=== PATIENT | male | born 1990 | race Hispanic/Latino ===

== ENCOUNTER 2019-09-11 05:43 | Emergency (ER) | payer OTHER ==
[2019-09-11] MEDS ORDERED: FENTANYL CITR 100 MCG/2 ML ONE (06:32)
[2019-09-11] MEDS ORDERED: IBUPROFEN 400 MG TAB ONE (06:32)
--- NOTE | 2019-09-11 07:37 | EDPHYS ---
Physician Documentation [facility] Name: Mike Valentin Age: 28 yrs Sex: Male : 1990 Arrival Date: 09/11/2019 Time: 05:43 Bed 13 Private MD: ED Physician Raleigh Abarca HPI: 09/10 06:52 This 28 yrs old Male presents to ER via Wheelchair with complaints of Ankle snw Injury. 06:52 The patient presents with decreased range of motion, an injury, pain, swelling, snw tenderness. The complaints affect the left ankle. Onset: The symptoms/episode began/occurred suddenly, today. Context: The problem was sustained outdoors, resulted from the patient falling, pt now states he was walking up a hill and stepped off a curb, fell, and couldn't get up, The mechanism of injury involved eversion of the affected ankle. The patient is unable to bear weight. The patient is not able to ambulate. Modifying factors: The symptoms are alleviated by nothing, the symptoms are aggravated by movement. Severity of symptoms: At their worst the symptoms were moderate. The patient has not experienced similar symptoms in the past. It is unknown whether or not the patient has recently seen a physician. pt unable to tell me exact details of what happened, + ETOH, denies other injury but cannot rule in isolated injury. CT head and C-spine pending, C-collar until able to clear. Historical: - Allergies: 06:01 No Known Allergies; bb - Home Meds: 06:01 None [Active]; bb - PMHx: 06:01 None; bb - PSHx: 06:01 wrist surgery; bb - Immunization history:: Adult Immunizations not up to date. - Social history:: Smoking status: Patient denies any tobacco usage or history of. Patient uses alcohol, patient/guardian reports recent binge of alcohol consumption. ROS: 06:48 Constitutional: Negative for fever, chills, and weight loss, Eyes: Negative for injury, snw pain, redness, and discharge, ENT: Negative for injury, pain, and discharge, Neck: Negative for injury, pain, and swelling, Cardiovascular: Negative for chest pain, palpitations, and edema, Respiratory: Negative for shortness of breath, cough, wheezing, and pleuritic chest pain, Abdomen/GI: Negative for abdominal pain, nausea, vomiting, diarrhea, and constipation, Back: Negative for injury and pain, : Negative for injury, bleeding, discharge, and swelling, Skin: Negative for injury, rash, and discoloration, Neuro: Negative for headache, weakness, numbness, tingling, and seizure. 06:48 MS/extremity: Positive for injury or acute deformity, decreased range of motion, pain, of the left lateral malleolus and left medial ankle. Exam: 06:42 Head/Face: Normocephalic, atraumatic. Eyes: Pupils equal round and reactive to light, snw extra-ocular motions intact. Lids and lashes normal. Conjunctiva and sclera are non-icteric and not injected. Cornea within normal limits. Periorbital areas with no swelling, redness, or edema. ENT: Nares patent. No nasal discharge, no septal abnormalities noted. Tympanic membranes are normal and external auditory canals are clear. Oropharynx with no redness, swelling, or masses, exudates, or evidence of obstruction, uvula midline. Mucous membranes moist. Neck: Trachea midline, no thyromegaly or masses palpated, and no cervical lymphadenopathy. Supple, full range of motion without nuchal rigidity, or vertebral point tenderness. No Meningismus. Chest/axilla: Normal chest wall appearance and motion. Nontender with no deformity. No lesions are appreciated. Cardiovascular: Regular rate and rhythm with a normal S1 and S2. No gallops, murmurs, or rubs. Normal PMI, no JVD. No pulse deficits. 06:42 Abdomen/GI: Soft, non-tender, with normal bowel sounds. No distension or tympany. No guarding or rebound. No evidence of tenderness throughout. Back: No spinal tenderness. No costovertebral tenderness. Full range of motion. Neuro: Awake but sleepy, GCS 15, oriented to person, place, time, and situation. Cranial nerves II-XII grossly intact. Motor strength 5/5 in all extremities. Sensory grossly intact. Cerebellar exam normal. 06:42 Constitutional: The patient appears smells of alcohol, ETOH, pt not answering questions, states his ankle hurts but doesn't repeat what happened to it other than it got twisted. 06:42 Respiratory: the patient does not display signs of respiratory distress, Respirations: normal, Breath sounds: are clear throughout, + sleep apnea. 06:42 Musculoskeletal/extremity: Extremities: grossly normal except: noted in the left lateral malleolus and left medial malleolus: contusion, decreased ROM, pain, swelling, ROM: limited active range of motion due to pain, limited passive range of motion due to pain, Circulation is intact in all extremities. pain Compartment Syndrome exam of affected extremity: is normal. no numbness, no sensation deficit, no palor, no weak pulses, Weight bearing: is unable to bear weight. 06:42 Skin: Appearance: normal except for affected area, injury, abrasion(s), small abrasion noted, of the left medial ankle, contusion(s), that are deep, of the left medial malleolus. 06:42 Neuro: Orientation: won't answer questions, + ETOH, snoring. Awakens easily and c/o pain to left ankle, Motor: moves all fours, seizure activity, is not displayed by the patient. Vital Signs: 05:59 BP 133 / 84; Pulse 96; Resp 16 S; Temp 99(O); Pulse Ox 95% on R/A; Weight 95.25 kg (R); bb Height 5 ft. 5 in. (165.10 cm) (R); Pain 10/10; 05:59 Body Mass Index 34.95 (95.25 kg, 165.10 cm) bb MDM: 06:31 Patient medically screened. snw 07:39 Data reviewed: vital signs, nurses notes. Data interpreted: Pulse oximetry: on room air snw is 95 %. Interpretation: acceptable. Counseling: I had a detailed discussion with the patient and/or guardian regarding: the historical points, exam findings, and any diagnostic results supporting the discharge/admit diagnosis, the presence of at least one elevated blood pressure reading (>120/80) during this emergency department visit, radiology results, the need for outpatient follow up, to return to the emergency department if symptoms worsen or persist or if there are any questions or concerns that arise at home. Response to treatment: the patient's symptoms have markedly improved after treatment. Special discussion: I have referred the patient to see his PCP for further evaluation of high blood pressure. Based on the history and exam findings, there is no indication for further emergent testing or inpatient evaluation. I discussed with the patient/guardian the need to see the orthopedic surgeon for further evaluation of the symptoms. I discussed with the patient/guardian the need to see the primary care provider for further evaluation of the symptoms. ED course: pt now alert and Ox3 post splinting and stimulation. Declines CT head and C-spine. Pt states he was walking up a hill at his home and slipped, twisted ankle and fell. Pt states he was unable to stand up or walk on ankle post fall.. 09/10 06:03 Order name: XRAY Ankle LEFT 3 view bb 09/10 06:24 Order name: Splint - Long Leg: Posterior w/ Stirrup; Complete Time: 07:24 snw 09/10 06:55 Order name: C-Collar; Complete Time: 07:04 snw 09/10 07:35 Order name: Crutches; Complete Time: 07:50 snw 09/10 07:35 Order name: Crutch Training; Complete Time: 07:50 snw Administered Medications: 06:40 Drug: Motrin 400 mg Route: PO; jb4 08:00 Follow up: Response: No adverse reaction iw 06:55 Not Given (PT is lethargic and desats when resting.): fentaNYL (PF) 50 mcg IM once; sk RASS on ADMIN: Combtv4, Very Agttd3, Agttd2, Rstlss1, AlertClm0, Drwsy-1, Lt Sdtn-2, Mod Sdtn-3, Dp Sdtn-4, UnArsble-5 07:07 Drug: fentaNYL (PF) 50 mcg Route: IM; Site: right deltoid; jb4 07:35 Follow up: Response: No adverse reaction iw Disposition: 20:00 Co-signature as Attending Physician, Raleigh Abarca MD I agree with the assessment and tw4 plan of care. Disposition: 09/11/19 07:36 Discharged to Home. Impression: Bimalleolar fracture of lower leg. - Condition is Stable. - Discharge Instructions: Ankle Fracture, Displaced Bimalleolar Ankle Fracture Treated With ORIF, Cast or Splint Care, Adult. - Prescriptions for Mobic 7.5 mg Oral Tablet - take 1 tablet by ORAL route every 12 hours take with food; 20 tablet. - Work release form, Medication Reconciliation Form, Thank You Letter, Antibiotic Education, Prescription Opioid Use form. - Follow up: Emergency Department; When: As needed; Reason: Worsening of condition. Follow up: Private Physician; When: 2 - 3 days; Reason: Recheck today's complaints, Continuance of care, Re-evaluation by your physician. Signatures: Dispatcher [employer] EDMS Diana Garza, CALVIN-C WATER METER INSTALLER-Csnw Citlalli Vang, RN RN Valencia Mejia RN RN iw Kozak, Stephanie RN Adalberto Carias RN RN jb4 Raleigh Abarca MD MD tw4 Corrections: (The following items were deleted from the chart) 08:03 07:36 09/11/2019 07:36 Discharged to Home. Impression: Bimalleolar fracture of lower iw leg. Condition is Stable. Forms are Medication Reconciliation Form, Thank You Letter, Antibiotic Education, Prescription Opioid Use. Follow up: Emergency Department; When: As needed; Reason: Worsening of condition. Follow up: Private Physician; When: 2 - 3 days; Reason: Recheck today's complaints, Continuance of care, Re-evaluation by your physician. snw
--- NOTE | 2019-09-11 07:37 | ER ---
Nurse's Notes [facility] Name: Mike Valentin Age: 28 yrs Sex: Male : 1990 Arrival Date: 09/11/2019 Time: 05:43 Bed 13 Private MD: Diagnosis: Bimalleolar fracture of lower leg Presentation: 09/10 05:59 Chief complaint: Patient states: he was walking and his left ankle "gave out" on him bb and it is now swollen and painful. Coronavirus screen: Proceed with normal triage. Ebola Screen: No symptoms or risks identified at this time. Initial Sepsis Screen: Does the patient meet any 2 criteria? No. Patient's initial sepsis screen is negative. Does the patient have a suspected source of infection? No. Patient's initial sepsis screen is negative. Risk Assessment: Do you want to hurt yourself or someone else? Patient reports no desire to harm self or others. Onset of symptoms was September 11, 2019. 05:59 Method Of Arrival: Wheelchair bb 05:59 Acuity: BAYLEE 4 bb Historical: - Allergies: 06:01 No Known Allergies; bb - Home Meds: 06:01 None [Active]; bb - PMHx: 06:01 None; bb - PSHx: 06:01 wrist surgery; bb - Immunization history:: Adult Immunizations not up to date. - Social history:: Smoking status: Patient denies any tobacco usage or history of. Patient uses alcohol, patient/guardian reports recent binge of alcohol consumption. Screenin:53 Abuse screen: Denies threats or abuse. Denies injuries from another. Nutritional iw screening: No deficits noted. Tuberculosis screening: No symptoms or risk factors identified. Fall Risk Fall in past 12 months (25 points). Assessment: 06:20 General: Appears in no apparent distress. uncomfortable, Behavior is calm, cooperative, jb4 appropriate for age. Pain: Complains of pain in Left ankle Pain radiates to left foot Pain currently is 10 out of 10 on a pain scale. Neuro: Level of Consciousness is awake, alert, obeys commands, Oriented to person, place, time, situation. Cardiovascular: Patient's skin is warm and dry. Pulses are 3+ in left dorsalis pedis artery. Respiratory: Airway is patent Respiratory effort is even, unlabored. GI: No signs and/or symptoms were reported involving the gastrointestinal system. : No signs and/or symptoms were reported regarding the genitourinary system. EENT: No signs and/or symptoms were reported regarding the EENT system. Derm: Skin is intact, Skin is pink, warm \\T\\ dry. Musculoskeletal: Circulation, motion, and sensation intact. Capillary refill < 3 seconds, in left toes. Range of motion: limited in left ankle. 07:28 Reassessment: Patient appears in no apparent distress at this time. Patient and/or jb4 family updated on plan of care and expected duration. Pain level reassessed. Patient is alert, oriented x 3, equal unlabored respirations, skin warm/dry/pink. Splint checked by provider. 07:52 Reassessment: Patient appears in no apparent distress at this time. Patient and/or iw family updated on plan of care and expected duration. Pain level reassessed. Patient is alert, oriented x 3, equal unlabored respirations, skin warm/dry/pink. pt waiting on his ride to pick him up, states his sister lives in [place]. Vital Signs: 05:59 BP 133 / 84; Pulse 96; Resp 16 S; Temp 99(O); Pulse Ox 95% on R/A; Weight 95.25 kg (R); bb Height 5 ft. 5 in. (165.10 cm) (R); Pain 10/10; 05:59 Body Mass Index 34.95 (95.25 kg, 165.10 cm) bb ED Course: 05:43 Patient arrived in ED. ds1 06:01 Triage completed. bb 06:01 Arm band placed on Patient placed in an exam room, on a stretcher, on pulse oximetry. bb Affected limb iced. Affected limb elevated. 06:19 Diana Garza FNP-C is PHCP. snw 06:19 Raleigh Abarca MD is Attending Physician. snw 06:22 XRAY Ankle LEFT 3 view In Process Unspecified. EDMS 07:01 Valencia Luciano, RN is Primary Nurse. iw 07:10 Patient has correct armband on for positive identification. iw 07:53 No provider procedures requiring assistance completed. Patient did not have IV access iw during this emergency room visit. Administered Medications: 06:40 Drug: Motrin 400 mg Route: PO; jb4 08:00 Follow up: Response: No adverse reaction iw 06:55 Not Given (PT is lethargic and desats when resting.): fentaNYL (PF) 50 mcg IM once; sk RASS on ADMIN: Combtv4, Very Agttd3, Agttd2, Rstlss1, AlertClm0, Drwsy-1, Lt Sdtn-2, Mod Sdtn-3, Dp Sdtn-4, UnArsble-5 07:07 Drug: fentaNYL (PF) 50 mcg Route: IM; Site: right deltoid; jb4 07:35 Follow up: Response: No adverse reaction iw Outcome: 07:36 Discharge ordered by . amy 08:02 Discharged to home ambulatory, with crutches, with family. iw 08:02 Condition: good 08:02 Discharge instructions given to patient, Instructed on discharge instructions, follow up and referral plans. medication usage, Demonstrated understanding of instructions, follow-up care, medications, Prescriptions given X 1. 08:03 Patient left the ED. iw Signatures: Dispatcher [employer] EDMS Diana Garza, TROLLEY COLLECTOR-C TROLLEY COLLECTOR-Amalia Jacobo ds1 Citlalli Vang RN Valencia Swanson RN GERALDINE iw Carlene Sanders, Adalberto Carias RN RN RN jb4 Corrections: (The following items were deleted from the chart) 07:01 06:40 Motrin 400 mg PO jb4
[2019-09-11 08:10] VITALS: BP 133/84; TEMP 99; O2SAT 95
--- NOTE | 2019-09-11 09:17 | RAD REPORT ---
EXAM DESCRIPTION: RAD - Ankle Left 3 View - 09/11/2019 6:22 am CLINICAL HISTORY: PAINtrip and fall, ankle pain COMPARISON: No comparisons FINDINGS: An oblique fracture is present in the distal shaft of the fibula with 5 mm lateral displac ement of the distal fracture fragment. Several small fracture fragments are present. There is a spira l type extension of this fracture more distally into the shaft. No distraction or angulation componen ts of the spiral fracture fragment. Transverse fracture of the medial malleolus is present. There is approximately 10 mm lateral displace ment of the talar dome relative to the tibial plafond. Medial malleolus fracture fragment remains viviana roximated to the talus. Interosseous ligament tear is likely. There is widening of the tibia fibula a rticulation. No talus or calcaneus fracture seen. Small spurs are present at the Achilles and plantar tendon attac hments. Posterior malleolus appears intact. Prominent soft tissue swelling present. IMPRESSION: Comminuted fibula fracture and medial malleolus fracture as detailed. There is lateral d isplacement of the dome of the talus.
== END 2019-09-11 08:03 | disposition home or self-care (01) ==
LOC: ER 05:43
PROC: 2W3MX1Z Immobilization of Left Lower Extremity using Splint (ICD-10-PCS; principal; 2019-09-11)
DX: S82.842A Displaced bimalleolar fracture of left lower leg, initial encounter for closed fracture (principal); W19.XXXA Unspecified fall, initial encounter; Y93.01 Activity, walking, marching and hiking; Y92.89 Other specified places as the place of occurrence of the external cause
CPT/HCPCS: 73610; 29505; J3010; 96372; 99284